=== PATIENT | female | born 1990 | race Caucasian/White ===

== ENCOUNTER 2016-11-06 17:00 | Observation (INO) | payer OTHER, MEDICAID ==
[~2016-11-06] VITALS: Ht 154.9 cm; Wt 56.2 kg
[2016-11-06] VITALS (7 sets, daily range): BP systolic 109–125; BP diastolic 65–83
--- OUTSIDE RECORDS SUMMARY | 2016-11-06 17:19 | XMS REPORT ---
Author Author FAMILIA POWELL [facility] eClinicalWorks Address Unknown Phone Unavailable Care Team Providers Care Professor Of Legal Studies Name Role Phone FAMILIA POWELL CP Unavailable Allergies, Adverse Reactions, Alerts Substance Reaction Event Type N.K.D.A. Info Not Available Non Drug Allergy Problems Problem Type Condition Code Onset Dates Condition Status Problem Contact dermatitis L25.9 Active Problem Anorexia 783.0 Active Problem Tobacco abuse Z72.0 Active Assessment Encounter for screening for infections with a predominantly sexual mode of transmission Z11.3 Active Problem Nondependent tobacco use disorder 305.1 Active Assessment Vaginal discharge N89.8 Active Medications Medication Code System Code Instructions Start Date End Date Status Dosage Chantix Continuing Month [facility] [id number] 1 MG Orally Twice a day 1 tablet Procedures Procedure Coding System Code Date No Charge CPT-4 91935 February 12, 2016 TRICHOMONAS ASSAY W/OPTIC CPT-4 59569 February 12, 2016 URINALYSIS, AUTO, W/O SCOPE CPT-4 03716 February 12, 2016 Office Visit, Est Pt., Level 3 CPT-4 78959 February 12, 2016 CULTURE, BACTERIA, OTHER CPT-4 20493 February 12, 2016 LOPEZ VAG, DNA, DIR PROBE CPT-4 00172 February 12, 2016 SPECIMEN HANDLING CPT-4 02385 February 12, 2016 VENIPUNCT, ROUTINE* CPT-4 12843 February 12, 2016 Vital Signs Date/Time: February 12, 2016 Temperature 97.7 F Weight 130.0 lbs Height 61 in BMI 24.56 Index Blood Pressure Diastolic 74 mmHg Blood Pressure Systolic 126 mmHg Cardiac Monitoring Heart Rate 90 bpm Results Name Result Date Reference Range Unit Abnormality Flag BACTERIAL VAGINOSIS (IN HOUSE) ----Lot # [id number] ----Exp date 20160212 ----RESULTS negative 20160212 ----Control + [id number] ROUTINE VENIPUNCTURE TRICHOMONAS (IN HOUSE) ----TRICHOMONAS negative 20160212 ----Control + [id number] ----Lot # [id number] ----Exp date 20160212 UA LONG DIP (IN HOUSE) ----JULEE negative 20160212 ----GLU negative 20160212 ----SG 1.025 20160212 ----KET negative 20160212 ----pH 6.5 20160212 ----Protein negative 20160212 ----BLO negative 20160212 ----DANIE negative 20160212 ----Color dark yellow 20160212 ----Lot # [id number] ----Odor strong 20160212 ----Exp date 20160212 ----URO 0.2 20160212 ----NIT negative 20160212 ----Clarity clear 20160212 ----Lot # [id number] ----Exp date 20160212 CULTURE, GENITAL ----Genital Culture, Routine Preliminary report [id number] Summary Purpose eClinicalWorks Submission
[2016-11-06] MEDS ORDERED: FAMOTIDINE 20 MG (PEPCID) TABLET PO PRN (17:45)
[2016-11-06] MEDS ORDERED: ENOXAPARIN 100 MG/1 ML (LOVENOX) SYR SC SCH ×2 (17:45→20:35)
--- NOTE | 2016-11-06 17:54 | Cardiology History & Physical ---
HPI-Cardiology Cardiology Consultation Date of Consultation 11/06/16 Date of Admission Indication: Chest pain HPI 25 years old lady with no significant past medical history, diagnosed with urinary tract infection late last week, started on antibiotics yesterday, was in her usual state of health at work this morning when she started having left shoulder and left arm pain, described it as achiness persisted for about half an hour then associated with chest pain described as dull achiness in the retrosternal area, felt lightheaded. Patient left work went home then she was brought by her boyfriend to the emergency room. In the ER she was feeling better. No further episode of chest pain, did not require any treatment, she was given GI cocktail, EKG did not show any acute abnormality, troponin level was elevated of 0.1 and increased later on to 0.17, the normal value in [facility] 0.01. I was called to assess her, accepted her as a transfer. Upper my evaluation she was feeling better, no further episodes of chest pain, had mild shortness of breath that has improved after her chest pain relief. Denied any palpitation, felt lightheaded but no syncope was reported, no pedal edema or calf pain. Patient used large amount of energy drink on a daily basis, drink alcohol and smoking, educated on smoking cessation, avoiding any caffeinated or energy drink. Avoiding stimulants. PMH-Cardiology Other PMHx Other PMHx: Urinary tract infection diagnosed 2 days ago Social History Patient Social History Marrital Status: single Employed/Student: employed Alcohol Use: Regular Use Smoking: Current every day smoker Family Hx Other No known family history of premature coronary artery disease or sudden cardiac ROS-Cardiology Review of Systems General: No Chills, No Night Sweats, Fatigue MalaiseNo Appetite HEENT: No Head Aches, No Visual Changes, No Eye Pain, No Ear Pain, No Dysphasia , No Sinus Congestion, No Post Nasal Drip, No Sore Throat Pulmonary: DyspneaNo Cough, No Pleuritic Chest Pain Cardiovascular: : Chest Pain: Lt HeadednessNo: Edema, Orthopnea, Palpitations, Paroxysmal Noc. Dyspnea Gastrointestinal: No: Abdominal Pain, Constipation, Diarrhea, Hematochezia, Melena, Nausea, Vomiting Genitourinary: No Dysuria, No Frequency, No Incontinence, No Hematuria, No Retention Musculoskeletal: No: arm pain, back pain, foot pain, hand pain, leg pain, neck pain, shoulder pain Neurological: No: Change in speech, Confusion, Incoordination, Numbness, Seizures, Weakness Home Medications & Allergies Allergies: Coded Allergies: No Known Drug Allergies (Unverified , 11/06/16) Home Medication List Reviewed: Yes Exam-Cardiology Vital Signs Vital Signs Date Time Temp Pulse Resp B/P Pulse Ox O2 Delivery O2 Flow Rate FiO2 11/07/16 17:10 64 18 99/67 99 11/07/16 14:45 Room Air 11/07/16 12:31 98.1 Exam General Appearance: Alert, Oriented X3, Cooperative, No Acute Distress HEENT: Atraumatic, PERRLA Respiratory: Clear to Auscultation, Normal Air Movement Cardiovascular: Regular Rate, Normal S1, Normal S2, No Murmurs Abdominal: Normal Bowel Sounds, Soft, No Tenderness, No Hepatosplenomegaly, No Masses Extremities: No Clubbing, No Cyanosis, No Edema, Normal Pulses, No Tenderness/ Swelling Skin: No Rashes, No Breakdown, No Significant Lesion Neuro: Normal Gait, Normal Speech, Strength at 5/5 X4 Ext, Normal Tone, Sensation Intact Psych/Mental Status: Mental Status NL, Mood NL Results Labs Labs Laboratory Tests 11/07/16 09:03: Activated Partial Thromboplast Time 30, INR Comment 0.9, Prothrombin Time 11.5L 11/07/16 09:25: Ur Tricyclic Antidepressants Screen NEGATIVE, Urine Amphetamines Screen NEGATIVE , Urine Barbiturates Screen NEGATIVE, Urine Benzodiazepines Screen NEGATIVE, Urine Cannabinoids Screen NEGATIVE, Urine Cocaine Screen NEGATIVE, Urine Methadone Screen NEGATIVE, Urine Methamphetamines Screen NEGATIVE, Urine Opiates Screen POSITIVEH, Urine Oxycodone Screen NEGATIVE, Urine Phencyclidine Screen NEGATIVE, Urine Propoxyphene Screen NEGATIVE Lab results from [facility] were reviewed A/P-Cardiology Admission Diagnosis Chest pain CAD Tobaccoism UTI Assessment/Plan Chest pain nonspecific etiology, resembling angina, patient is 25 years old with no acute EKG changes, chest pain has improved spontaneously. Mild lightheadedness, left arm pain also improved. Noted to have mild elevation in troponin level, I will reevaluate troponin level today and tomorrow morning. Monitor EKG. If continued to be asymptomatic I am planning to evaluate exercise stress test in the morning, evaluate echocardiogram. Physical examination is normal. I will start the patient on aspirin and Lovenox. Evaluate lipid profile and TSH Heavy use of energy drinks and alcohol in addition to heavy smoking. Educated on avoiding all these products. I will evaluate urine drug screen. Lightheadedness, improved. Continue to monitor Urinary tract infection, treated with Bactrim, I will restarted on monitor. MAXWELL ARREDONDO MD Nov 06, 2016 17:54
[2016-11-06] MEDS: TRIM/SULFAMETH 160/800 (SEPTRA DS) TAB PO SCH (18:52)
[2016-11-06] MEDS ORDERED: FAMOTIDINE 20MG/2ML IV (PEPCID) ONE (19:12)
[2016-11-06] MEDS ORDERED: NITROGLYCERIN SUBLINGUAL 0.4 MG TAB (NITROSTAT) SL ONE ×3 (19:12→21:43)
[2016-11-06] MEDS ORDERED: ACETAMINOPHEN 500 MG TAB (TYLENOL) ONE (19:31)
[2016-11-06] MEDS: amLODIPine 5 MG (NORVASC) TAB PO ONE (21:43)
[2016-11-06] MEDS ORDERED: amLODIPine 5 MG (NORVASC) TAB ONE (21:43)
[2016-11-06] MEDS ORDERED: morphine INJ 4 MG/ML 1 ML (VIAL/SYRINGE) ONE (21:56)
[2016-11-06] MEDS: morphine INJ 10 MG/ML 1ML (SYR OR VIAL) IVP ONE (21:57)
[2016-11-06] MEDS: ENOXAPARIN 60 MG/0.6 ML (LOVENOX) SYR SC SCH (22:17)
[2016-11-07] VITALS (7 sets, daily range): BP systolic 89–112; BP diastolic 63–78
[2016-11-07] MEDS ORDERED: ACETAMINOPHEN 500 MG TAB (TYLENOL) PO ONE (01:00)
[2016-11-07] MEDS ORDERED: NITROGLYCERIN SUBLINGUAL 0.4 MG TAB (NITROSTAT) SL ONE ×3 (01:00)
[2016-11-07] MEDS ORDERED: NITROGLYCERIN SUBLINGUAL 0.4 MG TAB (NITROSTAT) SL PRN (01:00)
[2016-11-07] MEDS: morphine INJ 10 MG/ML 1ML (SYR OR VIAL) IVP ONE (01:03)
[2016-11-07] MEDS: amLODIPine 5 MG (NORVASC) TAB PO ONE (01:04)
[2016-11-07 04:05] LABS: MEAN PLATELET VOLUME 9.8 FL (7.4-10.4); RED BLOOD COUNT 4.35 10^6/uL (4.35-5.85); RED CELL DISTRIBUTION WIDTH 12.7 % (10.0-14.5); WHITE BLOOD COUNT 5.2 10^3/uL (4.3-11.0)
[2016-11-07 04:48] LABS: ALANINE AMINOTRANSFERASE 25 U/L (0-55); ALBUMIN 3.2 G/DL (3.2-4.5); ANION GAP 9 MMOL/L (5-14); ASPARTATE AMINO TRANSFERASE 38 U/L (5-34); BILIRUBIN,TOTAL 0.2 MG/DL (0.1-1.0); BLOOD UREA NITROGEN 12 MG/DL (7-18); BUN/CREATININE RATIO 14; CALCIUM 8.5 MG/DL (8.5-10.1); CARBON DIOXIDE 24 MMOL/L (21-32); CHLORIDE 104 MMOL/L (98-107); CHOLESTEROL 123 MG/DL (< 200); CREATININE SERUM 0.83 MG/DL (0.60-1.30); DIRECT LDL 21 MG/DL (1-129); GFR ESTIMATED > 60; GLUCOSE 106 MG/DL (70-105); POTASSIUM 4.1 MMOL/L (3.6-5.0); SODIUM 137 MMOL/L (135-145); TOTAL PROTEIN 5.6 G/DL (6.4-8.2); TRIGLYCERIDES 57 MG/DL (<150); VLDL CHOLESTEROL 11 MG/DL (5-40)
[2016-11-07 05:11] LABS: TROPONIN I 2.14 NG/ML (<0.30)
[2016-11-07 05:13] LABS: THYROID STIMULATING HORMONE 1.95 UIU/ML (0.35-4.94)
[2016-11-07] MEDS: TRIM/SULFAMETH 160/800 (SEPTRA DS) TAB PO SCH (05:43)
[2016-11-07] MEDS ORDERED: FLU TRIvalent (5 YOA+) 2016-17 (AFLURIA) 0.5 ML IM ONE (07:15)
[2016-11-07] MEDS ORDERED: NS IV 1000 ML 1,000 ML IV SCH ×2 (08:15→11:12)
--- NOTE | 2016-11-07 08:31 | Cardiology Progress Note ---
Subjective Subjective/Events-last exam patient had multiple episodes of chest pain last night, responded to sublingual nitroglycerin and then required one dose of morphine sulfate. Currently not having chest pain, expressed that the pain in left arm pain that occurred during the hospital stay was similar to the pain happened at home, no acute EKG changes were noted Review of Systems General: No Chills, No Night Sweats, No Fatigue, No Malaise, No Appetite, No Other HEENT: No Head Aches, No Visual Changes, No Eye Pain, No Ear Pain, No Dysphasia , No Sinus Congestion, No Post Nasal Drip, No Sore Throat, No Other Pulmonary: No Dyspnea, No Cough, No Pleuritic Chest Pain, No Other Cardiovascular: No: Chest Pain, Edema, Lt Headedness, Orthopnea, Other, Palpitations, Paroxysmal Noc. Dyspnea Objective-Cardiology Exam Last Set of Vital Signs Vital Signs 11/07/16 11/07/16 08:14 08:16 Temp 96.2 Pulse 51 Resp 20 B/P 111/67 Pulse Ox 97 O2 Delivery Room Air Capillary Refill : I&O Bad tableGeneral: Alert, Oriented X3, Cooperative, No Acute Distress HEENT: Atraumatic, PERRLA Lungs: Clear to Auscultation, Normal Air Movement Heart: Regular Rate, Normal S1, Normal S2, No Murmurs Abdomen: Normal Bowel Sounds, Soft, No Tenderness, No Hepatosplenomegaly, No Masses Extremities: No Clubbing, No Cyanosis, No Edema, Normal Pulses, No Tenderness/ Swelling Skin: No Rashes, No Breakdown, No Significant Lesion Neuro: Normal Gait, Normal Speech, Strength at 5/5 X4 Ext, Normal Tone, Sensation Intact Psych/Mental Status: Mental Status NL, Mood NL Results Lab Laboratory Tests 11/07/16 03:50 A/P-Cardiology Admission Diagnosis Chest pain nonspecific etiology Anxiety Urinary tract infection Tobaccoism Assessment/Plan Chest pain nonspecific etiology, resembling angina, elevation in troponin level , continue to have recurrent chest pain, we discussed the management plan, discussed possibility of doing stress test versus cardiac catheterization, patient prefer cardiac catheterization, understand that having a stress test then continue to have chest pain and elevated troponin will require cardiac catheterization. Understands the risks and benefits. I will evaluate 2-D echocardiogram. Anxiety, patient was fairly anxious about her recurrent chest pain. Heavy use of energy drinks and alcohol in addition to heavy smoking. Educated on avoiding all these products. I will evaluate urine drug screen. Lightheadedness, improved. Continue to monitor Urinary tract infection, treated with Bactrim, I will restarted on monitor. Clinical Quality Measures DVT/VTE Risk/Contraindication: Risk Factor Score Per Nursin RFS Level Per Nursing on Admit: 1=Low/No VTE PPX MAXWELL ARREDONDO MD Nov 07, 2016 08:31
[2016-11-07] MEDS: ENOXAPARIN 60 MG/0.6 ML (LOVENOX) SYR SC SCH (08:37)
--- NOTE | 2016-11-07 08:46 | Cardiac Procedure Note-CS/ASA ---
Pre-Procedure Note Pre-Op Procedure Note H&P Reviewed The H&P was reviewed, patient examined and no changes noted. Date H&P Reviewed: Nov 07, 2016 Time H&P Reviewed: 08:46 Conscious Sedation Pre-Proced Time Reviewed: 08:46 ASA Class: 3 Airway Mallampati Classification: ([place] appropriate class) I. II. III, IV Lungs Heart ASA score ASA 1: a normal healthy patient ASA 2: a patient with a mild systemic disease (mid diabetes, controlled hypertension, obesity x ASA 3: a patient with a severe systemic disease that limits activity (angina , COPD, prior Myocardial infarction) ASA 4: a patient with an incapacitating disease that is a constant threat to life (CHF, renal failure) ASA 5: a moribund patient not expected to survive 24 hrs. (ruptured aneurysm) ASA 6: a declared brain patient whose organs are being harvested. For emergent operations, add the letter E after the classification Grade 3 Sedation Plan: Analgesia, Amnesia, Plan communicated to team members, Discussed options with patient/fam, Discussed risks with patient/fam Note The patient is an appropriate candidate to undergo the planned procedure, sedation, and anesthesia. The patient immediately re-assessed prior to indication. MAXWELL ARREDONDO MD Nov 07, 2016 08:46
[2016-11-07] MEDS ORDERED: ASPIRIN E.C. 325 MG (ECOTRIN) TABLET PO SCH (09:00)
[2016-11-07] MEDS ORDERED: CATHETER FLUSH 10 ML SYR IV PRN (09:00)
[2016-11-07] MEDS ORDERED: NAPR220T66 PO (09:13)
[2016-11-07] MEDS ORDERED: SULF-222 PO (09:13)
--- NOTE | 2016-11-07 09:21 | Diagnostic Imaging Report ---
INDICATION: Chest pain. TECHNIQUE: A frontal chest was obtained at 0524 hours. FINDINGS: The heart and mediastinal silhouette are normal in appearance. The lungs are clear. There is no pneumothorax or pleural fluid. IMPRESSION: Negative chest. Dictated by: Dictated on workstation # [id number]
[2016-11-07 09:23] LABS: INR 0.9 (0.8-1.4); PROTHROMBIN TIME PATIENT 11.5 SEC (12.2-14.7)
[2016-11-07] MEDS ORDERED: fentaNYL INJECTION 100 MCG/2 ML AMP ONE (10:12)
[2016-11-07] MEDS ORDERED: MIDAZOLAM 5 MG/5 ML (VERSED) VIAL ONE (10:12)
[2016-11-07] MEDS ORDERED: HEParin (CATH LAB) 2,000 ML IV ONE (10:12)
[2016-11-07] MEDS ORDERED: LIDOCAINE 1% INJ 20 ML (XYLOCAINE) VIAL ONE (10:12)
[2016-11-07] MEDS ORDERED: NS IV 1000 ML 0 ML ONE (10:12)
[2016-11-07] MEDS ORDERED: FAMO20TA5 PO (11:14)
[2016-11-07] MEDS ORDERED: ASPI-983 PO (11:14)
[2016-11-07] MEDS ORDERED: AMLO2.5T PO (11:14)
[2016-11-07] MEDS ORDERED: PATIENT MAY USE OWN MEDS, ALL PO SCH (11:15)
--- NOTE | 2016-11-07 11:16 | Discharge Inst-Post CATH ---
Discharge Inst-CATH Post Cardiac Cath D/C Inst Follow Up/Plan Appointment with Dr Mckeon's office in 2-4 weeks CARDIAC CATH DISCHARGE INSTRUCTIONS *Hold Metformin for 48 hours post heart cath. ACTIVITY * Go Home directly and rest. * Limit activity of the leg (or wrist if it was used) for 7 days including aerobics, swimming, jogging, bicycling, etc. * Restrict stair-climbing for 7 days if possible, if not, climb up with your non -cath leg, then bring together on the same step. * Avoid lifting, pushing, pulling or excessive movement of the affected extremity for 7 days. * Customary sexual activity may be resumed after 2 days-use caution not to use a position that strains or causes pain to the affected extremity. * No driving for 24 hours. * NO SMOKING. * Avoid straining for bowel movements for 7 days. * Gentle walking on level ground is allowed. * Returning to work will depend on the type of procedure and the results. Your doctor will discuss this with you. CALL YOUR DOCTOR FOR ANY OF THE FOLLOWING: *If bleeding from the puncture site occurs- Apply gentle pressure to site with clean cloth and call your doctor or EMS. * If a knot or lump forms under the skin, increases in size, or causes pain. * If bruising appears to be worsening or moving further down your leg instead of disappearing. * Temperature above 101 F. CARE OF YOUR GROIN INCISION; * Bruising or purple discoloration of the skin near the puncture site is common. * You may shower only, no bathtub bathing for 5 days. Be careful to avoid slipping as your leg may feel stiff. * If a closure device was used on your femoral artery, please see the attached guide regarding care of the device and your leg. * REMOVE the dressing from your groin the next day after your procedure in the shower. CARE OF YOUR WRIST INCISION; * Bruising or purple discoloration of the skin near the puncture site is common. * You may shower. * DO NOT submerge wrist. * Remove dressing in 24 hours. MAXWELL MCKEON MD Nov 07, 2016 11:16
--- NOTE | 2016-11-07 12:05 | ECHOCARDIOGRAPHY REPORT ---
PROCEDURE PHYSICIAN: MAXWELL ARNULFO DATE OF PROCEDURE: 11/07/2015 TWO DIMENSIONAL ECHOCARDIOGRAM REPORT PRIMARY PHYSICIAN: OTHER PHYSICIAN: REFERRING PHYSICIAN: ORDERING PHYSICIAN: INDICATION FOR THE PROCEDURE: Chest pain MEASUREMENTS DERIVED VALUES LV DIAMETER (LAX) NORMALS NORMALS Diastolic 4. (3.6-5.2) Eject. Fract. 60% (60%+/-6%) Systolic (2.3-3.9) Diastolic Vol. % Shortening (0.22-0.42) Systolic Vol. Aortic Root IVS THICKNESS Diastolic 1. (0.6-1.1) LVPW THICKNESS Diastolic 1. (0.6-1.1) LA DIAMETER Systolic 3.2 (2.1-3.7) FINDINGS: 1. Technical quality is good. 2. The left ventricle is normal in size with normal contractility. Systolic function appeared to be normal. Estimated ejection fraction 60%. 3. The left atrium is normal in size. No clot or thrombus were seen within the left atrium. 4. The right atrium and right ventricle are normal in size. No clot or thrombus were seen within the right side. 5. Mitral valve is normal in morphology with mild mitral regurgitation noted by color Doppler flow. No mitral valve prolapse. No mitral valve stenosis. 6. Aortic valve is trileaflet with normal opening and closing pattern. No significant aortic stenosis or regurgitation was seen. 7. Tricuspid valve is normal in morphology with mild tricuspid regurgitation noted by color Doppler flow. Doppler across tricuspid valve estimated pulmonary artery pressure of 10+ right atrial pressure. 8. Pulmonic valve is functioning normally. 9. No pericardial effusion. CONCLUSION: 1. Normal left ventricular size and systolic function. Estimated ejection fraction 60%. 2. Mild mitral and tricuspid regurgitation. 3. Estimated pulmonary artery pressure of 15 to 20 mmHg. 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
--- NOTE | 2016-11-07 12:21 | DISCHARGE SUMMARY ---
PROCEDURE PHYSICIAN: MAXWELL ARREDONDO DATE OF PROCEDURE: 11/07/2016 BRIEF HISTORY: Mrs. Macias is a 25-year-old lady was seen in [place] emergency room with acute chest pain, had positive troponin and transferred over here. She continued to have recurrent episodes of chest pain overnight. She had increase in her troponin level, no acute EKG changes. After discussing treatment options with the patient she requested cardiac catheterization. The procedure was explained in length, all pros and cons were explained. All questions were answered. The patient signed a consent, then she was placed on the cardiac catheterization laboratory. The right groin was prepped in a sterile fashion. Local anesthesia applied to right groin. 6-Faroese sheath was placed in the right femoral artery. Combination of right and left [place] catheter were used to access the right and left coronary system. Multiple views were obtained. Pigtail catheter advanced to the left ventricular cavity. Pressure was measured. Left ventriculogram was done. Pullback LV to aorta was done. At the end of the procedure, thoracic aortogram/aortic root angiogram was done. At the end of the procedure, sheath was removed. Mynx device deployed. Hemostasis achieved. FINDINGS: HEMODYNAMICS: LV pressure 99/13, end-diastolic pressure of 13, aortic pressure 100/57, mean of 75. No significant gradient across the aortic valve. ANATOMY: 1. Left main coronary artery is bifurcating to left anterior descending and left circumflex artery with no obstructive disease. 2. Left anterior descending artery is moderate in size with no obstructive disease. 3. Left circumflex artery is small, nondominant artery with no significant obstructive disease. 4. Right coronary artery is moderate in size. Dominant artery, with no obstructive disease. 5. Left ventriculogram was done in the right anterior oblique position. The left ventricle is normal in size with normal systolic function. Estimated ejection fraction 60%. 6. Thoracic aortogram/aortic root angiogram: Thoracic aorta and aortic root and aortic arch are normal in size. No dissection or aneurysm was seen. CONCLUSION: 1. Normal coronary system with a small, nondominant circumflex artery. 2. Normal left ventricular end diastolic pressure with normal left ventricular systolic function. Estimated ejection fraction 60%. 3. Normal aortic arch and thoracic aorta. DISCUSSION AND RECOMMENDATION: Mrs. Macias had chest pain and elevated troponin probably due to coronary spasm. Her troponin elevation also is probably due to coronary spasm, anxiety. I will start her on low-dose Norvasc with 2.5 mg daily, aspirin and Pepcid. I will reevaluate her as an outpatient. FINAL DIAGNOSIS: 1. Chest pain, nonspecific etiology. 2. Shortness of breath. 3. Elevated troponin. No myocardial infarction was noted. 4. Tobaccoism. 5. Alcoholism. 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
== END 2016-11-07 17:15 | disposition home or self-care (01) ==
LOC: ICU 17:00
PROVIDERS: ADMIT Internal Medicine Cardiovascular Disease; ATTEND Internal Medicine Cardiovascular Disease
DX: R07.89 Other chest pain (principal); R06.02 Shortness of breath; R79.89 Other specified abnormal findings of blood chemistry; N39.0 Urinary tract infection, site not specified; Z72.0 Tobacco use; Z79.899 Other long term (current) drug therapy
CPT/HCPCS: 36415; 71010; 80053; 80061; 80306; 83880; 84443; 84484; 85027; 85610; 85730; 93005; 93306; 93458; 93567; 99211; G0378

== ENCOUNTER 2019-03-15 10:33 | Emergency (ER) | payer MEDICAID, OTHER ==
[~2019-03-15] VITALS: Ht 154.9 cm; Wt 70.3 kg
[~2019-03-15 10:33] MED LIST: AMLO2.5T4 PO; ASPI-983 PO; FAMO20TA5 PO; NAPR220T66 PO; SULF-222 PO
[2019-03-15 10:45] VITALS: BP 135/91
[2019-03-15 11:01] LABS: CLARITY,URINE CLEAR; COLOR,URINE DARK YELLOW; GLUCOSE, URINE (UA) NEGATIVE (NEGATIVE); KETONES,URINE 3+ (NEGATIVE); NITRITE,URINE NEGATIVE (NEGATIVE); PROTEIN,URINE TRACE (NEGATIVE)
[2019-03-15 11:02] LABS: BACTERIA,URINE TRACE /HPF; LEUKOCYTE ESTERASE ,URINE TRACE (NEGATIVE); RBC,URINE RARE /HPF; UROBILINOGEN,URINE 0.2 MG/DL (NORMAL); WBC,URINE 0-2 /HPF
[2019-03-15 11:03] LABS: HCG,QUALITATIVE URINE NEGATIVE (NEGATIVE)
[2019-03-15 11:07] LABS: BILIRUBIN,URINE 2+ (NEGATIVE)
--- OUTSIDE RECORDS SUMMARY | 2019-03-15 11:13 | XMS REPORT ---
Author Author Migration, Doctor Organization [facility] Address Unknown Phone Unavailable Care Team Providers Care Roll Plugger Machine Operator Name Role Phone Migration, Doctor Unavailable Unavailable PROBLEMS Type Condition ICD9-CM Code EQT56-WH Code Onset Dates Condition Status SNOMED Code Problem Contact dermatitis L25.9 Active 74964933 Problem Tobacco abuse Z72.0 Active 34974081 Problem Anorexia 783.0 Active 03634652 Problem Nondependent tobacco use disorder 305.1 Active 326638213 ALLERGIES No Information ENCOUNTERS Encounter Location Date Diagnosis [facility] [address] [place] [address] Dec, Drug screening, pre-employment Z02.[address] [address] 20 Nov, 2018 Acute UTI N39.0 [facility] [address] [place] [address] 19 Nov, 2018 [facility] IN [address] [address] 14 Nov, 2018 Flank pain R10.9 and Dysuria R30.0 [facility] [address] [place] [address] Jun, [facility] [id number] [place] [address] February, Atyp squam cell of undet signfc cyto smr crvx (ASC-US) R87.610 and Cervical high risk human papillomavirus (HPV) DNA test positive R87.810 [facility] [address] [place] [address] February, [facility] [address] [place] [address] 15 Jan, 2016 Vaginal discharge N89.8 and Encounter for screening for infections with a predominantly sexual mode of transmission Z11.3 [facility] [address] [place] [address] Aug, [facility] [id number] [place] [address] Aug, Contact dermatitis L25.9 and Poison bharathi L23.7 [facility] [id number] [place] [address] Jul, [facility] [id number] [place] [address] Jun, Encounter for IUD removal V25.12 and Contraception management V25.9 [facility] [id number] [place] [id number] Jun, Dental examination V72.2 [facility] [id number] [place] [address] Mar, [facility] [id number] [place] [address] Jan, [facility] [id number] [place] [address] Jan, [facility] [id number] [place] [address] Mar, [facility] [address] [place] [address] Mar, [facility] [id number] [place] [address] Nov, [facility] [id number] [place] [address] Nov, [facility] [id number] [place] [address] Nov, [facility] [id number] [place] [address] Nov, [facility] [address] [id number] [address] Nov, [facility] [place] [facility] [address] [id number] [place] [address] Nov, [facility] [place] [facility] [address] [id number] [place] [address] Oct, [facility] [place] [facility] [address] [id number] [place] [address] Oct, [facility] [place] [facility] [address] [id number] [place] [address] Oct, [facility] [place] [facility] [address] [id number] [place] [address] Oct, [facility] [place] [facility] [address] [id number] [place] [address] May, [facility] [place] [facility] [address] [id number] [place] [address] May, [facility] [place] [facility] [address] [id number] [place] [address] May, [facility] [place] [facility] [address] [id number] [place] [address] Apr, [facility] [place] [facility] [address] [id number] [place] [address] Mar, [facility] [place] [facility] [address] [id number] [place] [address] Mar, [facility] [place] [facility] [address] [id number] [place] [address] Mar, [facility] [place] [facility] [address] [id number] [place] [address] Mar, [facility] [place] [facility] [address] [id number] [place] [address] February, [facility] [place] [facility] [address] [id number] [place] [address] February, [facility] [address] [facility] [id number], [place] [address] February, [facility] [address] [id number], [place] [address] Mar, [facility] [address] [id number], [place] [address] Mar, [facility] [address] [id number] [address] Mar, [facility] [address] [id number], [place] [address] Mar, [facility] [address] [id number], [place] [address] Mar, IMMUNIZATIONS No Known Immunizations SOCIAL HISTORY Never Assessed REASON FOR VISIT EMR-[facility] PLAN OF CARE VITAL SIGNS MEDICATIONS Medication Instructions Dosage Frequency Start Date End Date Duration Status Doxycycline Hyclate 100 mg take 1 tablet (100 mg) by oral route 2 times per day for 7 days Mar, Active Mirena by Intrauterine route Mar, Active Flagyl 500 mg 1 tablet by Oral route 2 times per day for 7 days Take with food, avoid alcohol. Nov, Active Metronidazole 500 mg 1 tablet by Oral route 2 times per day for 14 days do not consume alcohol for 48 hours after regimen Apr, Active RESULTS No Results PROCEDURES No Known procedures INSTRUCTIONS MEDICATIONS ADMINISTERED No Known Medications MEDICAL (GENERAL) HISTORY Type Description Date Medical History heart cath Medical History 3 vaginal births Surgical History heart cath Hospitalization History 3 vaginal births Hospitalization History heart cath
--- OUTSIDE RECORDS SUMMARY | 2019-03-15 11:13 | XMS REPORT ---
Author Author Migration, Doctor Organization [facility] Address Unknown Phone Unavailable Care Team Providers Care Programming Intern Name Role Phone Migration, Doctor Unavailable Unavailable PROBLEMS Type Condition ICD9-CM Code FIM30-XA Code Onset Dates Condition Status SNOMED Code Problem IUD check up V25.42 Jul, 0 103182442 Problem Pelvic pain in female 625.9 Jul, 0 909956158 Problem Chest pain 786.50 Oct, 0 63074448 Problem Anorexia 783.0 Active 37810522 Problem Routine follow-up V24.2 Aug, 0 394784806 Problem Cigarette nicotine dependence, uncomplicated 305.1 Nov, 0 656759302 Problem Elevated troponin R74.8 Oct, 0 607742659 Problem Cigarette nicotine dependence, uncomplicated F17.210 Nov, 0 908555079 Problem Contact dermatitis L25.9 Active 52744696 Problem Elevated troponin 790.6 Oct, 0 958206841 Problem Tobacco abuse Z72.0 Active 92642811 Problem Nondependent tobacco use disorder 305.1 Active 667304764 Problem Routine follow-up Z39.2 Aug, 0 253484181 Problem Pelvic pain in female R10.2 Jul, 0 067401500 Problem Chest pain R07.9 Oct, 0 50346418 Problem IUD check up Z30.431 Jul, 0 488127991 ALLERGIES No Information ENCOUNTERS Encounter Location Date Diagnosis [facility] [address] [place] [address] Dec, Drug screening, pre-employment Z02.[address] [address] Nov, Acute UTI N39.0 [facility] [address] [place] [address] Nov, [facility] [address] [place] [address] 14 Nov, 2018 Flank pain R10.9 and Dysuria R30.0 [place] [address] [address] Oct, [facility] [address] [address] Sep, [place] [address] [address] Jul, [place] [address] [address] Jun, [place] [address] [address] February, Atyp squam cell of undet signfc cyto smr crvx (ASC-US) R87.610 and Cervical high risk human papillomavirus (HPV) DNA test positive R87.810 [place] [address] [address] February, [facility] [address] [address] Jan, Vaginal discharge N89.8 and Encounter for screening for infections with a predominantly sexual mode of transmission Z11.3 [place] [address] [address] Aug, [place] [address] [address] Aug, Contact dermatitis L25.9 and Poison bharathi L23.7 [place] [address] [address] Jul, [address] [address] Jun, Encounter for IUD removal V25.12 and Contraception management V25.9 [facility] [address] [id number] Jun, Dental examination V72.2 [facility] [place] [facility] [address] [id number] [place] [address] Mar, [facility] [place] [facility] [address] [id number] [place] [address] Jan, [facility] [place] [facility] [address] [id number] [place] [address] Jan, [facility] [place] [facility] [address] [id number] [place] [address] Mar, [facility] [place] [facility] [address] [id number] [place] [address] Mar, [facility] [place] [facility] [address] [id number] [place] [address] Nov, [facility] [place] [facility] [address] [id number] [place] [address] Nov, [facility] [place] [facility] [address] [id number] [place] [address] Nov, [facility] [place] [facility] [address] [id number] [place] [address] Nov, [facility] [place] [facility] [address] [id number] [place] [address] Nov, [facility] [place] [facility] [address] [id number] [place] [address] Nov, [facility] [place] [facility] [address] [id number] [place] [address] Oct, [facility] [place] [facility] [address] [id number] [place] [address] Oct, [facility] [place] [facility] [address] [id number] [place] [address] Oct, [facility] [place] [facility] [address] [id number] [place] [address] Oct, [facility] [place] [facility] [address] [id number] [place] [address] May, [facility] [address] [id number] [place] [address] May, [facility] [address] [id number] [place] [address] May, [facility] [address] [id number] [place] [address] Apr, [facility] [address] [id number] [place] [address] Mar, [facility] [address] [id number] [place] [address] Mar, [facility] [address] [id number] [place] [address] Mar, [facility] [address] [id number] [place] [address] Mar, [facility] [address] [id number] [place] [address] February, [facility] [address] [id number] [place] [address] February, [facility] [address] [id number] [place] [address] February, [facility] [address] [id number] [place] [address] Mar, [facility] [address] [id number] [place] [address] Mar, [facility] [address] [id number] [place] [address] Mar, [facility] [address] [id number] [place] [address] Mar, [facility] [address] [id number] [place] [address] Mar, IMMUNIZATIONS No Known Immunizations SOCIAL HISTORY Never Assessed REASON FOR VISIT [place] [place] VITAL SIGNS MEDICATIONS Unknown Medications RESULTS No Results PROCEDURES No Known procedures INSTRUCTIONS MEDICATIONS ADMINISTERED No Known Medications MEDICAL (GENERAL) HISTORY Type Description Date Medical History heart cath Medical History 3 vaginal births Surgical History heart cath Hospitalization History 3 vaginal births Hospitalization History heart cath
--- OUTSIDE RECORDS SUMMARY | 2019-03-15 11:14 | XMS REPORT ---
Author Author Migration, Doctor Organization [facility] Address Unknown Phone Unavailable Care Team Providers Care Engraving Plate Maker Name Role Phone Migration, Doctor Unavailable Unavailable PROBLEMS Type Condition ICD9-CM Code AKF56-JT Code Onset Dates Condition Status SNOMED Code Problem Contact dermatitis L25.9 Active 97222602 Problem Tobacco abuse Z72.0 Active 98292021 Problem Anorexia 783.0 Active 26147569 Problem Nondependent tobacco use disorder 305.1 Active 843197474 ALLERGIES No Information ENCOUNTERS Encounter Location Date Diagnosis [facility] [address] [place] [address] Dec, Drug screening, pre-employment Z02.[address] [address] 20 Nov, 2018 Acute UTI N39.0 [facility] [address] [place] [address] 19 Nov, 2018 [facility] [address] [address] 14 Nov, 2018 Flank pain R10.9 and Dysuria R30.0 [facility] [address] [place] [address] Jun, [facility] [id number] [place] [address] February, Atyp squam cell of undet signfc cyto smr crvx (ASC-US) R87.610 and Cervical high risk human papillomavirus (HPV) DNA test positive R87.810 [facility] [address] [place] [address] February, [facility] IN [facility] [address] [place] [address] 15 Jan, 2016 Vaginal discharge N89.8 and Encounter for screening for infections with a predominantly sexual mode of transmission Z11.3 [facility] [address] [place] [address] Aug, [facility] [id number] [place] [address] Aug, Contact dermatitis L25.9 and Poison bharathi L23.7 [facility] [id number] [place] [address] Jul, [facility] [id number] [place] [address] Jun, Encounter for IUD removal V25.12 and Contraception management V25.9 [facility] [id number] [place] [id number] Jun, Dental examination V72.2 [facility] [id number] [place] [address] Mar, [facility] [id number] [place] [address] Jan, [facility] [id number] [place] [address] Jan, [facility] [id number] [place] [address] Mar, [facility] [address] [place] [address] Mar, [facility] [id number] [place] [address] Nov, [facility] [address] [place] [address] Nov, [facility] [id number] [place] [address] Nov, [facility] [id number] [place] [address] Nov, [facility] [address] [id number] [place] [address] Nov, [facility] [place] [facility] [address] [id number] [place] [address] Nov, [facility] [place] [facility] [address] [id number] [place] [address] Oct, [facility] [place] [facility] [address] [id number] [place] [address] Oct, [facility] [place] [facility] [address] [id number] [place] [address] Oct, [facility] [place] [facility] [address] [id number] [place] [address] Oct, [facility] [place] [facility] [address] [id number] [place] [address] May, [facility] [place] [facility] [address] [id number] [place] [address] May, [facility] [place] [facility] [address] [id number] [place] [address] May, [facility] [place] [facility] [address] [id number] [place] [address] Apr, [facility] [place] [facility] [address] [id number] [place] [address] Mar, [facility] [place] [facility] [address] [id number] [place] [address] Mar, [facility] [place] [facility] [address] [id number] [place] [address] Mar, [facility] [place] [facility] [address] [id number] [place] [address] Mar, [facility] [place] [facility] [address] [id number] [place] [address] February, [facility] [place] [facility] [address] [id number] [place] [address] February, [facility] [address] [facility] [id number] [address] February, [facility] [address] [address] Mar, [facility] [address] [id number] [address] Mar, [facility] [address] [address] Mar, [facility] [address] [id number] [address] Mar, [facility] [address] [id number] [address] Mar, IMMUNIZATIONS No Known Immunizations SOCIAL HISTORY Never Assessed REASON FOR VISIT [place] [place] VITAL SIGNS MEDICATIONS Unknown Medications RESULTS No Results PROCEDURES No Known procedures INSTRUCTIONS MEDICATIONS ADMINISTERED No Known Medications MEDICAL (GENERAL) HISTORY Type Description Date Medical History heart cath Medical History 3 vaginal births Surgical History heart cath Hospitalization History 3 vaginal births Hospitalization History heart cath
--- OUTSIDE RECORDS SUMMARY | 2019-03-15 11:14 | XMS REPORT ---
Author Author ROSENDO MASCORRO Organization [employer] Address Unknown Phone Unavailable Care Team Providers Care Tile Layer Helper Name Role Phone ROSENDO MASCORRO CP Unavailable Allergies No Known Allergies Problems Problem Type Condition ICD-9 Code Onset Dates Condition Status Problem Nondependent tobacco use disorder 305.1 Active Assessment Dental examination V72.2 Active Problem Anorexia 783.0 Active Medications No Known Medications Procedures Procedure Coding System Code Date INTRAORL-PERIAPICAL 1 FILM 03935 CPT-4 D0220 Jul 02, 2015 BITEWING - SINGLE FILM CPT-4 D0270 Jul 02, 2015 LTD ORAL EVALUATION - PROBLEM FOCUS CPT-4 D0140 Jul 02, 2015 Results No Known Results Summary Purpose [employer] Submission
--- OUTSIDE RECORDS SUMMARY | 2019-03-15 11:14 | XMS REPORT ---
Author Author SILVANA HAN Organization [employer] Address Unknown Phone Unavailable Care Team Providers Care Aircraft De Icer Installer Name Role Phone SILVANA HAN CP Unavailable Allergies, Adverse Reactions, Alerts Substance Reaction Event Type N.K.D.A. Info Not Available Non Drug Allergy Problems Problem Type Condition Code Onset Dates Condition Status Problem Contact dermatitis L25.9 Active Problem Anorexia 783.0 Active Problem Tobacco abuse Z72.0 Active Assessment Poison bharathi L23.7 Active Problem Nondependent tobacco use disorder 305.1 Active Assessment Contact dermatitis L25.9 Active Medications Medication Code System Code Instructions Start Date End Date Status Dosage Ortho-Cyclen (28) [facility] [address]-28 0.25-35 MG-MCG Orally Once a day Jul 02, 2015 1 tablet PredniSONE [facility] [address]-42 10 MG Orally Once a day, 3 tabs for 3 days: Then 2 tabs for 3 days: then 1 tab for 3 days Sep 08, 2015 as directed Procedures Procedure Coding System Code Date Office Visit, Est Pt., Level 3 CPT-4 95349 Sep 08, 2015 Vital Signs Date/Time: Sep 08, 2015 Temperature 98.0 F Weight 124.6 lbs Height 61 in BMI 23.54 Index Blood Pressure Diastolic 72 mmHg Blood Pressure Systolic 118 mmHg Cardiac Monitoring Heart Rate 72 bpm Results No Known Results Summary Purpose [employer] Submission
--- OUTSIDE RECORDS SUMMARY | 2019-03-15 11:14 | XMS REPORT ---
Author Author Migration, Doctor Organization [facility] Address Unknown Phone Unavailable Care Team Providers Care Civil Engineer In Training Name Role Phone Migration, Doctor Unavailable Unavailable PROBLEMS Type Condition ICD9-CM Code ABX34-[id number] Code Onset Dates Condition Status SNOMED Code Problem Contact dermatitis L25.9 Active 01565514 Problem Tobacco abuse Z72.0 Active 42896645 Problem Anorexia 783.0 Active 46414483 Problem Nondependent tobacco use disorder 305.1 Active 253290472 ALLERGIES No Information ENCOUNTERS Encounter Location Date Diagnosis [facility] WALK IN [facility] [address] [place] [address] Dec, Drug screening, pre-employment Z02.[address] [address] 20 Nov, 2018 Acute UTI N39.0 [facility] IN [facility] [address] [place] [address] 19 Nov, 2018 [facility] IN [address] [address] 14 Nov, 2018 Flank pain R10.9 and Dysuria R30.0 [facility] [address] [place] [address] Jun, [facility] [id number] [place] [address] February, Atyp squam cell of undet signfc cyto smr crvx (ASC-US) R87.610 and Cervical high risk human papillomavirus (HPV) DNA test positive R87.810 [facility] [address] [place] [address] February, [facility] [address] [place] [address] 15 Jan, 2016 Vaginal discharge N89.8 and Encounter for screening for infections with a predominantly sexual mode of transmission Z11.3 [facility] [address] [place] [address] Aug, [facility] [id number] [place] [address] Aug, Contact dermatitis L25.9 and Poison bharathi L23.7 [facility] [id number] [place] [address] Jul, [facility] [id number] [place] [address] Jun, Encounter for IUD removal V25.12 and Contraception management V25.9 [facility] [id number] [place] [id number] Jun, Dental examination V72.2 [facility] [id number] [place] [address] Mar, [facility] [id number] [place] [address] Jan, [facility] [id number] [place] [address] Jan, [facility] [id number] [place] [address] Mar, [facility] [address] [place] [address] Mar, [facility] [id number] [place] [address] Nov, [facility] [address] [place] [address] Nov, [facility] [id number] [place] [address] Nov, [facility] [id number] [place] [address] Nov, [facility] [address] [id number] [address] Nov, [facility] [place] [facility] [address] [id number] [place] [address] Nov, [facility] [place] [facility] [address] [id number] [place] [address] Oct, [facility] [place] [facility] [address] [id number] [place] [address] Oct, [facility] [place] [facility] [address] [id number] [place] [address] Oct, [facility] [place] [facility] [address] [id number] [place] [address] Oct, [facility] [place] [facility] [address] [id number] [place] [address] May, [facility] [place] [facility] [address] [id number] [place] [address] May, [facility] [place] [facility] [address] [id number] [place] [address] May, [facility] [place] [facility] [address] [id number] [place] [address] Apr, [facility] [place] [facility] [address] [id number] [place] [address] Mar, [facility] [place] [facility] [address] [id number] [place] [address] Mar, [facility] [place] [facility] [address] [id number] [place] [address] Mar, [facility] [place] [facility] [address] [id number] [place] [address] Mar, [facility] [place] [facility] [address] [id number] [place] [address] February, [facility] [place] [facility] [address] [id number] [place] [address] February, [facility] [address] [facility] [id number] [place] [address] February, [facility] [address] [address] Mar, [facility] [address] [id number] [address] Mar, [facility] [address] [address] Mar, [facility] [address] [id number] [address] Mar, [facility] [address] [id number] [address] Mar, IMMUNIZATIONS No Known Immunizations SOCIAL HISTORY [...]
--- OUTSIDE RECORDS SUMMARY | 2019-03-15 11:14 | XMS REPORT ---
Author Author Migration, Doctor Organization [facility] Address Unknown Phone Unavailable Care Team Providers Care Medical Billing Instructor Name Role Phone Migration, Doctor Unavailable Unavailable PROBLEMS Type Condition ICD9-CM Code GQS36-JP Code Onset Dates Condition Status SNOMED Code Problem Contact dermatitis L25.9 Active 79784811 Problem Tobacco abuse Z72.0 Active 20523268 Problem Anorexia 783.0 Active 72745880 Problem Nondependent tobacco use disorder 305.1 Active 434509998 ALLERGIES No Information ENCOUNTERS Encounter Location Date Diagnosis [facility] WALK IN [facility] [address] [place] [address] Dec, Drug screening, pre-employment Z02.[address] [address] 20 Nov, 2018 Acute UTI N39.0 [facility] [address] [place] [address] 19 Nov, 2018 [facility] [address] [address] 14 Nov, 2018 Flank pain R10.9 and Dysuria R30.0 [facility] [address] [place] [address] Jun, [facility] [id number] [place] [address] February, Atyp squam cell of undet signfc cyto smr crvx (ASC-US) R87.610 and Cervical high risk human papillomavirus (HPV) DNA test positive R87.810 [facility] [address] [place] [address] February, [facility] IN [facility] [address] [place] [address] 15 Jan, 2016 Vaginal discharge N89.8 and Encounter for screening for infections with a predominantly sexual mode of transmission Z11.3 [facility] [address] [place] [address] Aug, [facility] [id number] [place] [address] Aug, Contact dermatitis L25.9 and Poison bharathi L23.7 [facility] [id number] [place] [address] Jul, [facility] [id number] [place] [address] Jun, Encounter for IUD removal V25.12 and Contraception management V25.9 [facility] [id number] [place] [id number] Jun, Dental examination V72.2 [facility] [id number] [place] [address] Mar, [facility] [id number] [place] [address] Jan, [facility] [id number] [place] [address] Jan, [facility] [id number] [place] [address] Mar, [facility] [address] [place] [address] Mar, [facility] [id number] [place] [address] Nov, [facility] [address] [place] [address] Nov, [facility] [id number] [place] [address] Nov, [facility] [id number] [place] [address] Nov, [facility] [address] [id number] [address] Nov, [facility] [place] [facility] [address] [id number] [place] [address] Nov, [facility] [place] [facility] [address] [id number] [place] [address] Oct, [facility] [place] [facility] [address] [id number] [place] [address] Oct, [facility] [place] [facility] [address] [id number] [place] [address] Oct, [facility] [place] [facility] [address] [id number] [place] [address] Oct, [facility] [place] [facility] [address] [id number] [place] [address] May, [facility] [place] [facility] [address] [id number] [place] [address] May, [facility] [place] [facility] [address] [id number] [place] [address] May, [facility] [place] [facility] [address] [id number] [place] [address] Apr, [facility] [place] [facility] [address] [id number] [place] [address] Mar, [facility] [place] [facility] [address] [id number] [place] [address] Mar, [facility] [place] [facility] [address] [id number] [place] [address] Mar, [facility] [place] [facility] [address] [id number] [place] [address] Mar, [facility] [place] [facility] [address] [id number] [place] [address] February, [facility] [place] [facility] [address] [id number] [place] [address] February, [facility] [address] [facility] [id number] [address] February, [facility] [address], [place] [address] Mar, [facility] [address] [id number] [address] Mar, [facility] [address], [place] [address] Mar, [facility] [address] [id number] [address] Mar, [facility] [address] [id number], [place] [address] Mar, IMMUNIZATIONS No Known Immunizations SOCIAL HISTORY Never Assessed REASON FOR VISIT [facility] [place]AN OF CARE VITAL SIGNS MEDICATIONS Unknown Medications RESULTS No Results PROCEDURES No Known procedures INSTRUCTIONS MEDICATIONS ADMINISTERED No Known Medications MEDICAL (GENERAL) HISTORY Type Description Date Medical History heart cath Medical History 3 vaginal births Surgical History heart cath Hospitalization History 3 vaginal births Hospitalization History heart cath
--- OUTSIDE RECORDS SUMMARY | 2019-03-15 11:14 | XMS REPORT ---
Author Author Migration, Doctor Organization [facility] Address Unknown Phone Unavailable Care Team Providers Care Restaurant Hourly Manager Name Role Phone Migration, Doctor Unavailable Unavailable PROBLEMS Type Condition ICD9-CM Code CWY05-FL Code Onset Dates Condition Status SNOMED Code Problem Contact dermatitis L25.9 Active 93545217 Problem Tobacco abuse Z72.0 Active 55405733 Problem Anorexia 783.0 Active 73181330 Problem Nondependent tobacco use disorder 305.1 Active 297933287 ALLERGIES No Information ENCOUNTERS Encounter Location Date Diagnosis [facility] WALK IN [facility] [address] [place] [address] Dec, Drug screening, pre-employment Z02.[address] [address] 20 Nov, 2018 Acute UTI N39.0 [facility] IN [facility] [address] [place] [address] 19 Nov, 2018 [facility] IN [address] [address] 14 Nov, 2018 Flank pain R10.9 and Dysuria R30.0 [facility] [address] [place] [address] Jun, [facility] [id number] [place] [address] February, Atyp squam cell of undet signfc cyto smr crvx (ASC-US) R87.610 and Cervical high risk human papillomavirus (HPV) DNA test positive R87.810 [facility] [address] [place] [address] February, [facility] IN [facility] [address] [place] [address] 15 Jan, 2016 Vaginal discharge N89.8 and Encounter for screening for infections with a predominantly sexual mode of transmission Z11.3 [facility] [address] [place] [address] Aug, [facility] [id number] [place] [address] Aug, Contact dermatitis L25.9 and Poison bharathi L23.7 [facility] [id number] [place] [address] Jul, [facility] [id number] [place] [address] Jun, Encounter for IUD removal V25.12 and Contraception management V25.9 [facility] [id number] [place] [id number] Jun, Dental examination V72.2 [facility] [id number] [place] [address] Mar, [facility] [id number] [place] [address] Jan, [facility] [id number] [place] [address] Jan, [facility] [id number] [place] [address] Mar, [facility] [address] [place] [address] Mar, [facility] [id number] [place] [address] Nov, [facility] [address] [place] [address] Nov, [facility] [id number] [place] [address] Nov, [facility] [id number] [place] [address] Nov, [facility] [address] [id number] [address] Nov, [facility] [place] [facility] [address] [id number] [place] [address] Nov, [facility] [place] [facility] [address] [id number] [place] [address] Oct, [facility] [place] [facility] [address] [id number] [place] [address] Oct, [facility] [place] [facility] [address] [id number] [place] [address] Oct, [facility] [place] [facility] [address] [id number] [place] [address] Oct, [facility] [place] [facility] [address] [id number] [place] [address] May, [facility] [place] [facility] [address] [id number] [place] [address] May, [facility] [place] [facility] [address] [id number] [place] [address] May, [facility] [place] [facility] [address] [id number] [place] [address] Apr, [facility] [place] [facility] [address] [id number] [place] [address] Mar, [facility] [place] [facility] [address] [id number] [place] [address] Mar, [facility] [place] [facility] [address] [id number] [place] [address] Mar, [facility] [place] [facility] [address] [id number] [place] [address] Mar, [facility] [place] [facility] [address] [id number] [place] [address] February, [facility] [place] [facility] [address] [id number] [place] [address] February, [facility] [address] [facility] [id number] [address] February, [facility] [address] [address] Mar, [facility] [address] [id number] [address] Mar, [facility] [address] [address] Mar, [facility] [address] [id number] [address] Mar, [facility] [address] [id number] [address] Mar, IMMUNIZATIONS No Known Immunizations SOCIAL HISTORY Never Assessed REASON FOR VISIT [facility] [place]ARE VITAL SIGNS MEDICATIONS Unknown Medications RESULTS No Results PROCEDURES No Known procedures INSTRUCTIONS MEDICATIONS ADMINISTERED No Known Medications MEDICAL (GENERAL) HISTORY Type Description Date Medical History heart cath Medical History 3 vaginal births Surgical History heart cath Hospitalization History 3 vaginal births Hospitalization History heart cath
--- OUTSIDE RECORDS SUMMARY | 2019-03-15 11:14 | XMS REPORT ---
Author Author BENITO DE LEON [facility] eClinicalWorks Address Unknown Phone Unavailable Care Team Providers Care Residential Life Director Name Role Phone BENITO DE LEON CP Unavailable Allergies No Known Allergies Problems Problem Type Condition Code Onset Dates Condition Status Problem Nondependent tobacco use disorder 305.1 Active Problem Anorexia 783.0 Active Medications No Known Medications Results No Known Results Summary Purpose eClinicalWorks Submission
--- OUTSIDE RECORDS SUMMARY | 2019-03-15 11:14 | XMS REPORT ---
Author Author Migration, Doctor Organization [facility] Address Unknown Phone Unavailable Care Team Providers Care Machine Packaging Technician Name Role Phone Migration, Doctor Unavailable Unavailable PROBLEMS Type Condition ICD9-CM Code XVY30-LW Code Onset Dates Condition Status SNOMED Code Problem Contact dermatitis L25.9 Active 05751098 Problem Tobacco abuse Z72.0 Active 44314878 Problem Anorexia 783.0 Active 35814775 Problem Nondependent tobacco use disorder 305.1 Active [id number] ALLERGIES No Information ENCOUNTERS Encounter Location Date Diagnosis [facility] [address] [place] [address] Dec, Drug screening, pre-employment Z02.[address] [address] 20 Nov, 2018 Acute UTI N39.0 [facility] [address] [place] [address] 19 Nov, 2018 [facility] [address] [address] 14 Nov, 2018 Flank pain R10.9 and Dysuria R30.0 [facility] [address] [place] [address] Jun, [facility] [id number] [place] [address] February, Atyp squam cell of undet signfc cyto smr crvx (ASC-US) R87.610 and Cervical high risk human papillomavirus (HPV) DNA test positive R87.810 [facility] [address] [place] [address] February, [facility] [address] [place] [address] 15 Jan, 2016 Vaginal discharge N89.8 and Encounter for screening for infections with a predominantly sexual mode of transmission Z11.3 [facility] [address] [place] [address] Aug, [facility] [id number] [place] [address] Aug, Contact dermatitis L25.9 and Poison bharathi L23.7 [facility] [id number] [place] [address] Jul, [facility] [id number] [place] [address] Jun, Encounter for IUD removal V25.12 and Contraception management V25.9 [facility] [id number] [place] [id number] Jun, Dental examination V72.2 [facility] [id number] [place] [address] Mar, [facility] [id number] [place] [address] Jan, [facility] [id number] [place] [address] Jan, [facility] [id number] [place] [address] Mar, [facility] [address] [place] [address] Mar, [facility] [id number] [place] [address] Nov, [facility] [address] [place] [address] Nov, [facility] [id number] [place] [address] Nov, [facility] [id number] [place] [address] Nov, [facility] [id number] [place] [address] Nov, [facility] [place] [facility] [address] [id number] [place] [address] Nov, [facility] [place] [facility] [address] [id number] [place] [address] Oct, [facility] [place] [facility] [address] [id number] [place] [address] Oct, [facility] [place] [facility] [address] [id number] [place] [address] Oct, [facility] [place] [facility] [address] [id number] [place] [address] Oct, [facility] [place] [facility] [address] [id number] [place] [address] May, [facility] [place] [facility] [address] [id number] [place] [address] May, [facility] [place] [facility] [address] [id number] [place] [address] May, [facility] [place] [facility] [address] [id number] [place] [address] Apr, [facility] [place] [facility] [address] [id number] [place] [address] Mar, [facility] [place] [facility] [address] [id number] [place] [address] Mar, [facility] [place] [facility] [address] [id number] [place] [address] Mar, [facility] [place] [facility] [address] [id number] [place] [address] Mar, [facility] [place] [facility] [address] [id number] [place] [address] February, [facility] [place] [facility] [address] [id number] [place] [address] February, [facility] [address] [facility] [id number] [address] February, [facility] [address] [address] Mar, [facility] [address] [id number] [address] Mar, [facility] [address] [address] Mar, [facility] [id number] [address] Mar, [facility] [address] [id number] [address] Mar, IMMUNIZATIONS No Known Immunizations SOCIAL HISTORY Never Assessed REASON FOR VISIT EMR-[facility] PLAN OF CARE VITAL SIGNS MEDICATIONS Unknown Medications RESULTS No Results PROCEDURES No Known procedures INSTRUCTIONS MEDICATIONS ADMINISTERED No Known Medications MEDICAL (GENERAL) HISTORY Type Description Date Medical History heart cath Medical History 3 vaginal births Surgical History heart cath Hospitalization History 3 vaginal births Hospitalization History heart cath
--- OUTSIDE RECORDS SUMMARY | 2019-03-15 11:14 | XMS REPORT ---
Author Author BENITO DE LEON eClinicalWorks Address Unknown Phone Unavailable Care Team Providers Care Radio Announcer Name Role Phone BENITO DE LEON CP Unavailable Allergies, Adverse Reactions, Alerts Substance Reaction Event Type N.K.D.A. Info Not Available Non Drug Allergy Problems Problem Type Condition Code Onset Dates Condition Status Problem Contact dermatitis L25.9 Active Problem Anorexia 783.0 Active Problem Tobacco abuse Z72.0 Active Assessment Cervical high risk human papillomavirus (HPV) DNA test positive R87.810 Active Problem Nondependent tobacco use disorder 305.1 Active Assessment Atyp squam cell of undet signfc cyto smr crvx (ASC-US) R87.610 Active Medications Medication Code System Code Instructions Start Date End Date Status Dosage Chantix Continuing Month [place] [facility] [address]-96 1 MG Orally Twice a day 1 tablet Flagyl [facility] [address]-31 500 MG Orally 2 times a day February 29, 2016 1 tablet Procedures Procedure Coding System Code Date BX/CURETT OF CERVIX W/SCOPE CPT-4 91980 March 01, 2016 URINE TEST CPT-4 32600 March 01, 2016 Vital Signs Date/Time: March 01, 2016 Temperature 98.3 F Weight 133.5 lbs Height 61 in BMI 25.22 Index Blood Pressure Diastolic 72 mmHg Blood Pressure Systolic 123 mmHg Cardiac Monitoring Heart Rate 74 bpm Results Name Result Date Reference Range Unit Abnormality Flag TEST, URINE (IN HOUSE) ----RESULTS Negative [id number] ----Lot # [id number] ----Control + [id number] ----Exp date 20160301 COLP W/ BX & ECC Summary Purpose eClinicalWorks Submission
--- OUTSIDE RECORDS SUMMARY | 2019-03-15 11:14 | XMS REPORT ---
Author LINDSAY Ferraro [facility] eClinicalWorks Address Unknown Phone Unavailable Care Team Providers Care Transcribing Operator Head Name Role Phone LINDSAY CEBALLOS CP Unavailable Allergies No Known Allergies Problems Problem Type Condition Code Onset Dates Condition Status Problem Contact dermatitis L25.9 Active Problem Anorexia 783.0 Active Problem Tobacco abuse Z72.0 Active Problem Nondependent tobacco use disorder 305.1 Active Medications Medication Code System Code Instructions Start Date End Date Status Dosage Flagyl [facility] [address]-44 500 MG Orally 2 times a day February 29, 2016 1 tablet Results No Known Results Summary Purpose eClinicalWorks Submission
[2019-03-15] MEDS ORDERED: ONDANSETRON 4 MG/2 ML (SDV) Z0FRAN IVP ONE (11:15)
[2019-03-15] MEDS ORDERED: NS IV 1000 ML 1,000 ML IV SCH (11:15)
[2019-03-15] MEDS ORDERED: KETOROLAC 30 MG/ML VIAL IVP ONE (11:15)
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
--- OUTSIDE RECORDS SUMMARY | 2019-03-15 11:15 | XMS REPORT ---
Author Author LINDSAY CEBALLOS [facility] Address [address] [place] [address] Care Team Providers Care Scrap Wheeler Name Role Phone LINDSAY CEBALLOS Unavailable PROBLEMS Type Condition ICD9-CM Code RJS38-LN Code Onset Dates Condition Status SNOMED Code Problem Tobacco abuse Z72.0 Active 28134086 Problem Contact dermatitis L25.9 Active 92757854 Problem Nondependent tobacco use disorder 305.1 Active 378136495 Problem Anorexia 783.0 Active 17370003 ALLERGIES No Information ENCOUNTERS Encounter Location Date Diagnosis [facility] [address] [address] Jun, [facility] [address] [address] February, Atyp squam cell of undet signfc cyto smr crvx (ASC-US) R87.610 and Cervical high risk human papillomavirus (HPV) DNA test positive R87.810 [facility] [id number] [place] [address] February, [facility] [id number] [place] [address] Jan, Vaginal discharge N89.8 and Encounter for screening for infections with a predominantly sexual mode of transmission Z11.3 [facility] [address] [address] Aug, [address] [address] Aug, Contact dermatitis L25.9 and Poison bharathi L23.7 [place] [address] [address] Jul, [facility] [id number] [address] Jun, Encounter for IUD removal V25.12 and Contraception management V25.9 [facility] [address] [id number] [id number] Jun, Dental examination V72.2 [facility] [address] [address] Mar, [facility] [address] [address] Jan, [facility] [address] [place] [address] Jan, [facility] [address] [place] [address] Mar, [facility] [address] [place] [address] Mar, [facility] [address] [address] Nov, [facility] [address] [place] [address] Nov, [facility] [address] [address] Nov, [facility] [address] [address] Nov, [facility] [address] [address] Nov, [facility] [address] [address] Nov, [facility] [address] [address] Oct, [facility] [address] [address] Oct, [facility] [place] [facility] [address] [id number] [place] [address] Oct, [facility] [place] [facility] [address] [id number] [place] [address] Oct, [facility] [place] [facility] [address] [id number] [place] [address] May, [facility] [place] [facility] [address] [id number] [place] [address] May, [facility] [place] [facility] [address] [id number] [place] [address] May, [facility] [place] [facility] [address] [id number] [place] [address] Apr, [facility] [place] [facility] [address] [id number] [place] [address] Mar, [facility] [place] [facility] [address] [id number] [place] [address] Mar, [facility] [place] [facility] [address] [id number] [place] [address] Mar, [facility] [place] [facility] [address] [id number] [place] [address] Mar, [facility] [place] [facility] [address] [id number] [place] [address] February, [facility] [place] [facility] [address] [id number] [place] [address] February, [facility] [place] [facility] [address] [id number] [place] [address] February, [facility] [place] [facility] [address] [id number] [place] [address] Mar, [facility] [place] [facility] [address] [id number] [place] [address] Mar, [facility] [place] [facility] [address] [facility] [id number] [place] [address] Mar, [facility] [address] [facility] [id number] [place] [address] Mar, [facility] [address] [facility] [id number] [place] [address] Mar, IMMUNIZATIONS No Known Immunizations SOCIAL HISTORY Never Assessed REASON FOR VISIT 1st Repeat Pap Letter Mailed PLAN OF CARE VITAL SIGNS MEDICATIONS Unknown Medications RESULTS No Results PROCEDURES No Known procedures INSTRUCTIONS MEDICATIONS ADMINISTERED No Known Medications
--- OUTSIDE RECORDS SUMMARY | 2019-03-15 11:15 | XMS REPORT ---
Author Author FAMILIA POWELL [facility] eClinicalWorks Address Unknown Phone Unavailable Care Team Providers Care Real Estate Sales Manager Name Role Phone FAMILIA POWELL CP Unavailable [...] End Date Status Dosage Chantix Continuing Month [facility] [address]-11 1 MG Orally Twice a day 1 tablet Procedures Procedure Coding System Code Date No Charge CPT-4 97824 February 12, 2016 TRICHOMONAS ASSAY W/OPTIC CPT-4 06408 February 12, 2016 URINALYSIS, AUTO, W/O SCOPE CPT-4 76192 February 12, 2016 Office Visit, Est Pt., Level 3 CPT-4 35713 February 12, 2016 CULTURE, BACTERIA, OTHER CPT-4 88118 February 12, 2016 LOPEZ VAG, DNA, DIR PROBE CPT-4 73427 February 12, 2016 SPECIMEN HANDLING CPT-4 55774 February 12, 2016 VENIPUNCT, ROUTINE* CPT-4 09726 February 12, 2016 Vital Signs Date/Time: February 12, 2016 Temperature 97.7 F Weight 130.0 lbs Height 61 in BMI 24.56 Index Blood Pressure Diastolic 74 mmHg Blood Pressure Systolic 126 mmHg Cardiac Monitoring Heart Rate 90 bpm Results Name Result Date Reference Range Unit Abnormality Flag BACTERIAL VAGINOSIS (IN HOUSE) ----Lot # [id number] ----Exp date [id number] ----RESULTS negative [id number] ----Control + [id number] ROUTINE VENIPUNCTURE TRICHOMONAS (IN HOUSE) ----TRICHOMONAS negative 20160212 ----Control + 20160212 ----Lot # [id number] ----Exp date 20160212 UA LONG DIP (IN HOUSE) ----JULEE negative 20160212 ----GLU negative 20160212 ----SG 1.025 20160212 ----KET negative 20160212 ----pH 6.5 20160212 ----Protein negative 20160212 ----BLO negative 20160212 ----DANIE negative 20160212 ----Color dark yellow 20160212 ----Lot # [id number] ----Odor strong 20160212 ----Exp date 20160212 ----URO 0.2 20160212 ----NIT negative 20160212 ----Clarity clear 20160212 ----Lot # [id number] ----Exp date 20160212 CULTURE, GENITAL ----Genital Culture, Routine Preliminary report 20160212 Summary Purpose eClinicalWorks Submission
--- OUTSIDE RECORDS SUMMARY | 2019-03-15 11:15 | XMS REPORT ---
Author Author BENITO DE LEON [facility] e[employer] Address Unknown Phone Unavailable Care Team Providers Care Building Maintenance Supervisor Name Role Phone BENITO DE LEON CP Unavailable Allergies, Adverse Reactions, Alerts Substance Reaction Event Type N.K.D.A. Info Not Available Non Drug Allergy Problems Problem Type Condition ICD-9 Code Onset Dates Condition Status Problem Nondependent tobacco use disorder 305.1 Active Assessment Encounter for IUD removal V25.12 Active Problem Anorexia 783.0 Active Assessment Contraception management V25.9 Active Medications Medication Code System Code Instructions Start Date End Date Status Dosage Ortho-Cyclen (28) [facility] [address]-58 0.25-35 MG-MCG Orally Once a day Jul 02, 2015 1 tablet Mirena [facility] [id number] March 31, 2012 by Intrauterine route Procedures Procedure Coding System Code Date URINE TEST CPT-4 87716 Jul 02, 2015 REMOVE INTRAUTERINE DEVICE CPT-4 65550 Jul 02, 2015 Vital Signs Date/Time: Jul 02, 2015 Temperature 98.0 F Weight 115.6 lbs Height 61 in BMI 21.84 Index Blood Pressure Diastolic 70 mmHg Blood Pressure Systolic 110 mmHg Cardiac Monitoring Heart Rate 78 bpm Results Name Result Date Reference Range Unit Abnormality Flag TEST, URINE (IN HOUSE) Summary Purpose eClinicalWorks Submission
--- OUTSIDE RECORDS SUMMARY | 2019-03-15 11:15 | XMS REPORT ---
Author Author SILVANA HAN Organization e[employer] Address Unknown Phone Unavailable Care Team Providers Care Chassis Driver Name Role Phone SILVANA HAN CP Unavailable Allergies No Known Allergies Problems Problem Type Condition Code Onset Dates Condition Status Problem Contact dermatitis L25.9 Active Problem Anorexia 783.0 Active Problem Tobacco abuse Z72.0 Active Problem Nondependent tobacco use disorder 305.1 Active Medications Medication Code System Code Instructions Start Date End Date Status Dosage PredniSONE [facility] [address]-90 10 MG Orally Once a day Sep 08, 2015 Sep 21, 2015 not defined Results No Known Results Summary Purpose eClinicalWorks Submission
[2019-03-15] MEDS ORDERED: NS 100 ML (IVPB) BAG IV ONE (11:30)
[2019-03-15] MEDS ORDERED: HOLD METFORMIN - RECEIVED CONTRAST 20 ML VIAL IV SCH (11:30)
[2019-03-15] MEDS ORDERED: CATHETER FLUSH 10 ML SYR IV PRN (11:30)
[2019-03-15] MEDS ORDERED: IOHEXOL 350 MG/ML 100 ML (OMNIPAQUE 350) VIAL IV ONE (11:30)
[2019-03-15 11:43] LABS: BASOPHILS % (AUTO) 0 % (0-10); EOSINOPHILS % (AUTO) 1 % (0-10); HEMATOCRIT 45 % (35-52); HEMOGLOBIN 15.4 G/DL (11.5-16.0); LYMPHOCYTES % (AUTO) 20 % (12-44); MEAN CORPUSCULAR HEMOGLOBIN 33 PG (25-34); MEAN CORPUSCULAR HGB CONC 34 G/DL (32-36); MEAN CORPUSCULAR VOLUME 96 FL (80-99); MEAN PLATELET VOLUME 9.9 FL (7.4-10.4); MONOCYTES % (AUTO) 7 % (0-12); NEUTROPHILS % (AUTO) 72 % (42-75); PLATELET COUNT 287 10^3/uL (130-400); RED CELL DISTRIBUTION WIDTH 12.6 % (10.0-14.5); WHITE BLOOD COUNT 6.3 10^3/uL (4.3-11.0)
[2019-03-15 11:44] LABS: ALKALINE PHOSPHATASE 57 U/L (40-136); BILIRUBIN,TOTAL 0.8 MG/DL (0.1-1.0); BUN/CREATININE RATIO 11; CARBON DIOXIDE 24 MMOL/L (21-32); CHLORIDE 98 MMOL/L (98-107); CREATININE SERUM 0.66 MG/DL (0.60-1.30); EOSINOPHILS # (AUTO) 0.1 10^3/uL (0.0-0.3); GFR ESTIMATED > 60; GLUCOSE 103 MG/DL (70-105); LYMPHOCYTES # (AUTO) 1.2 X 10^3 (1.0-4.0); MONOCYTES # (AUTO) 0.5 X 10^3 (0.0-1.0); NEUTROPHILS # (AUTO) 4.5 X 10^3 (1.8-7.8); SODIUM 138 MMOL/L (135-145)
[2019-03-15 11:45] LABS: ALANINE AMINOTRANSFERASE 27 U/L (0-55); ALBUMIN 4.3 GM/DL (3.2-4.5); LIPASE 40 U/L (8-78); TOTAL PROTEIN 7.4 GM/DL (6.4-8.2)
--- NOTE | 2019-03-15 12:17 | Diagnostic Imaging Report ---
PROCEDURE: CT abdomen and pelvis with contrast. TECHNIQUE: Multiple contiguous axial images were obtained through the abdomen and pelvis after administration of intravenous contrast. Auto Exposure Controls were utilized during the CT exam to meet ALARA standards for radiation dose reduction. INDICATION: Nausea and vomiting. Abdominal pain. Abdominal distention. FINDINGS: Included portions of the lung bases show 3 mm subpleural micronodule within the left lower lobe (image 6, series 2). CT ABDOMEN: Normal appendix is identified. Small bowel loops are nondistended. There is subtle area of relative hypoenhancement involving the posterior margins of segment 7 of the liver. Area in question measures 7-8 mm in diameter (image 22, series 2). Otherwise, the liver, kidneys, adrenal glands, spleen, and pancreas have a normal CT appearance. There is no loculated fluid collection, free fluid, nor free air within the abdomen. No abnormal mesenteric or retroperitoneal adenopathy is seen. Bony structures show no acute abnormalities. CT PELVIS: Urinary bladder is unopacified. No calculi are seen within the urinary bladder. There is trace free fluid within the pelvis. There is no loculated fluid collection or free air. Indwelling intrauterine contraceptive device is identified and appears to be in appropriate position. No abnormal adenopathy is seen within the pelvis. Bony structures show no acute abnormalities. IMPRESSION: 1. Trace free fluid within the pelvis; likely physiologic. 2. Subtle area of relative nodular hypoenhancement involving segment 7 of the liver. This is incompletely characterized on this exam. If further evaluation is indicated, followup with Eovist MRI is recommended. 3. Small micronodule within the included portions of the left lower lobe. If patient is in a high-risk category, such as history of smoking, may want to consider one-year followup to ensure stability. Otherwise, if patient is in a low-risk category, no further followup may be indicated. Dictated by: Dictated on workstation # [id number]
--- NOTE | 2019-03-15 12:44 | ED Abdominal Pain ---
General Chief Complaint: Abdominal/GI Problems Stated Complaint: ABD PAIN & BLOATING; N&V Nursing Triage Note: Patient reports midline abdominal pain that started last night with nausea and vomiting. She states she vomited twice during the night and her pain has worsened and moved to her right lower quadrant. Sepsis Screen: No Definite Risk Source of Information: Patient History of Present Illness Date Seen by Provider: March 15, 2019 Time Seen by Provider: 10:50 Initial Comments 28 yo F presenting with abdominal pain since yesterday. She has not felt well this week. She had some n/v since last night associated with middle abdominal pain. Then the pain seemed to move more to her RLQ area. She has no change in bowels. She has no fever but has chills. She has pain with palpation. She has decreased appetite. She admits to drinking alcohol almost daily. Denies any fever but has felt chilled Allergies and Home Medications Allergies Coded Allergies: No Known Drug Allergies (Unverified , 11/06/16) Home Medications Amlodipine Besylate 2.5 Mg Tablet, 2.5 MG PO DAILY Prescribed by: MAXWELL ARREDONDO on 11/07/16 1114 Aspirin 81 Mg Tablet.dr, 81 MG PO DAILY Prescribed by: MAXWELL ARREDONDO on 11/07/16 1114 Dicyclomine HCl 20 Mg Tablet, 20 MG PO ACHS PRN for ABDOMINAL PAIN Prescribed by: KRISTEN BOSS on 03/15/19 1317 Famotidine 20 Mg Tablet, 20 MG PO BID PRN for INDIGESTION Prescribed by: MAXWELL ARREDONDO on 11/07/16 1114 Naproxen Sodium 220 Mg Tablet, 220-440 MG PO DAILY PRN for PAIN, (Reported) TAKES 1-2 (220 MG) TABLET Ondansetron 4 Mg Tab.rapdis, 4 MG PO Q6H PRN for NAUSEA/VOMITING Prescribed by: KRISTEN BOSS on 03/15/19 1317 Sulfamethoxazole/Trimethoprim 1 Each Tablet, 1 TAB PO BID, (Reported) FILLED 11/04/15 #14 FOR A 7 DAY THERAPY Patient Home Medication List Home Medication List Reviewed: Yes Review of Systems Review of Systems Constitutional: chills; No fever; malaise EENTM: No Symptoms Reported Respiratory: No Symptoms Reported Cardiovascular: No Symptoms Reported Gastrointestinal: See HPI, Abdominal Pain; Denies Blood Streaked Stools, Denies Constipated, Denies Diarrhea, Denies Difficulty Swallowing; Nausea, Poor Appet ite; Denies Poor Fluid Intake, Denies Rectal Bleeding; Vomiting Genitourinary: No Symptoms Reported; Denies Burning, Denies Discharge, Denies Drainage, Denies Frequency, Denies Flank Pain, Denies Hematuria Musculoskeletal: no symptoms reported Skin: no symptoms reported Psychiatric/Neurological: No Symptoms Reported Endocrine: No Symptoms Reported Past Gvamonp-Lbatmx-Zirbct Hx Past Med/Social Hx: Reviewed Nursing Past Med/Soc Hx Patient Social History Alcohol Use: Regular Use Number of Drinks Today: 0 Alcohol Beverage of Choice: Whiskey Recreational Drug Use: No Smoking Status: Current Everyday Smoker Type Used: Cigarettes 2nd Hand Smoke Exposure: No Recent Foreign Travel: No Contact w/Someone Who Travel: No Recent Infectious Disease Expo: No Recent Hopitalizations: No Physical Abuse: No Sexual Abuse: No Mistreated: No Fear: No Seasonal Allergies Seasonal Allergies: No Past Medical History Surgeries: No Respiratory: No Cardiac: No Neurological: No : No 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 Physical Exam Vital Signs Vital Signs - First Documented 03/15/19 10:45 Temp 98.6 Pulse 57 Resp 16 B/P (MAP) 135/91 (106) Pulse Ox 100 O2 Delivery Room Air Capillary Refill : Less Than 3 Seconds Height/Weight/BMI Height: 5'1.00" Weight: 155lbs. 2.0oz. 70.520601kp; 23.5 BMI Method:Stated General Appearance: WD/WN, no apparent distress HEENT: PERRL/EOMI, normal ENT inspection, pharynx normal Neck: non-tender, supple Respiratory: chest non-tender, lungs clear, normal breath sounds, no respiratory distress, no accessory muscle use Cardiovascular: normal peripheral pulses, regular rate, rhythm Gastrointestinal: normal bowel sounds, soft, no pulsatile mass; No guarding, No rebound; tenderness (rlq area is more tender but has diffuse mild tenderness) Rectal: deferred Extremities: normal range of motion, non-tender, normal inspection, no pedal edema, no calf tenderness Neurologic/Psychiatric: alert, normal mood/affect, oriented x 3 Skin: normal color, warm/dry Progress/Results/Core Measures Results/Orders Lab Results Laboratory Tests Test 03/15/19 10:40 03/15/19 11:00 Range/Units Urine Color DARK YELLOW Urine Clarity CLEAR Urine pH 7.0 5-9 Urine Specific [place]vell 1.020 1.016-1.022 Urine Protein TRACE H NEGATIVE Urine Glucose (UA) NEGATIVE NEGATIVE Urine Ketones 3+ H NEGATIVE Urine Nitrite NEGATIVE NEGATIVE Urine Bilirubin 2+ H NEGATIVE Urine Urobilinogen 0.2 NORMAL MG/DL Urine Leukocyte Esterase TRACE H NEGATIVE Urine RBC (Auto) TRACE-L NEGATIVE Urine RBC RARE /HPF Urine WBC 0-2 /HPF Urine Squamous Epithelial Cells 5-10 /HPF Urine Crystals NONE /LPF Urine Bacteria TRACE /HPF Urine Casts NONE /LPF Urine Mucus LARGE H /LPF Urine Culture Indicated NO Urine Test NEGATIVE NEGATIVE White Blood Count 6.3 4.3-11.0 10^3/uL Red Blood Count 4.69 4.35-5.85 10^6/uL Hemoglobin 15.4 11.5-16.0 G/DL Hematocrit 45 35-52 % Mean Corpuscular Volume 96 80-99 FL Mean Corpuscular Hemoglobin 33 25-34 PG Mean Corpuscular Hemoglobin Concent 34 32-36 G/DL Red Cell Distribution Width 12.6 10.0-14.5 % Platelet Count 287 130-400 10^3/uL Mean Platelet Volume 9.9 7.4-10.4 FL Neutrophils (%) (Auto) 72 42-75 % Lymphocytes (%) (Auto) 20 12-44 % Monocytes (%) (Auto) 7 0-12 % Eosinophils (%) (Auto) 1 0-10 % Basophils (%) (Auto) 0 0-10 % Neutrophils # (Auto) 4.5 1.8-7.8 X 10^3 Lymphocytes # (Auto) 1.2 1.0-4.0 X 10^3 Monocytes # (Auto) 0.5 0.0-1.0 X 10^3 Eosinophils # (Auto) 0.1 0.0-0.3 10^3/uL Basophils # (Auto) 0.0 0.0-0.1 10^3/uL Sodium Level 138 135-145 MMOL/L Potassium Level 4.0 3.6-5.0 MMOL/L Chloride Level 98 98-107 MMOL/L Carbon Dioxide Level 24 21-32 MMOL/L Anion Gap 16 H 5-14 MMOL/L Blood Urea Nitrogen 7 7-18 MG/DL Creatinine 0.66 0.60-1.30 MG/DL Estimat Glomerular Filtration Rate > 60 BUN/Creatinine Ratio 11 Glucose Level 103 70-105 MG/DL Calcium Level 9.0 8.5-10.1 MG/DL Corrected Calcium 8.5-10.1 MG/DL Total Bilirubin 0.8 0.1-1.0 MG/DL Aspartate Amino Transf (AST/SGOT) 23 5-34 U/L Alanine Aminotransferase (ALT/SGPT) 27 0-55 U/L Alkaline Phosphatase 57 40-136 U/L Total Protein 7.4 6.4-8.2 GM/DL Albumin 4.3 3.2-4.5 GM/DL Lipase 40 8-78 U/L My Orders Orders - KRISTEN BOSS MD Ua Culture If Indicated (03/15/19 10:39) Hcg,Qualitative Urine (03/15/19 10:39) Comprehensive Metabolic Panel (03/15/19 11:15) Lipase (03/15/19 11:15) Ed Iv/Invasive Line Start (03/15/19 11:15) Cbc With Automated Diff (03/15/19 11:15) Ct Abdomen/Pelvis W (03/15/19 11:15) Ns Iv 1000 Ml (Sodium Chloride 0.9%) (03/15/19 11:15) Ketorolac Injection (Toradol Injection) (03/15/19 11:15) Ondansetron Injection (Zofran Injectio (03/15/19 11:15) Iohexol Injection (Omnipaque 350 Mg/Ml 1 (03/15/19 11:30) Received Contrast (Hold Metformin- Contr (03/15/19 11:30) Ns (Ivpb) (Sodium Chloride 0.9% Ivpb Bag (03/15/19 11:30) Sodium Chloride Flush (Catheter Flush Sy (03/15/19 11:30) Medications Given in ED Vital Signs/I&O 03/15/19 10:45 Temp 98.6 Pulse 57 Resp 16 B/P (MAP) 135/91 (106) Pulse Ox 100 O2 Delivery Room Air 03/16/19 00:00 Intake Total 1000 ml Balance 1000 ml Blood Pressure Mean: 106 Progress Progress Note #1: Progress Note With her having pain in middle of abdomen and moving to RLQ will check CT scan abd/pelvis to eval for appendicitis or colon pathology. check labs and give ivf with toradol for pain and zofran for nausea. Progress Note #2: Progress Note Labs are stable with no significant abnormality on her CBC. Chemistry with mild elevation of lfts. Urine clear of infection or acute abnormality. CT scan shows no appendicitis or colon pathology. she has hyoenhancing nodule in the liver that MRI or ultrasound may help eval. further. counseled to quit drinking alcohol so much. may need EGD or colonoscopy. Check with the clinic for follow up. Diagnostic Imaging Diagonstic Imaging: CT Plain Films/CT/US/NM/MRI: abdomen, pelvis Comments NAME: ROZINA HERNANDEZ [facility] REC#: [id number] PT STATUS: DEP ER : 1990 PHYSICIAN: KRISTEN BOSS MD ADMIT DATE: 03/15/19/ER FS Signed Date of Exam:03/15/19 CT ABDOMEN/PELVIS W PROCEDURE: CT abdomen and pelvis with contrast. TECHNIQUE: Multiple contiguous axial images were obtained through the abdomen and pelvis after administration of intravenous contrast. Auto Exposure Controls were utilized during the CT exam to meet ALARA standards for radiation dose reduction. INDICATION: Nausea and vomiting. Abdominal pain. Abdominal distention. FINDINGS: Included portions of the lung bases show 3 mm subpleural micronodule within the left lower lobe (image 6, series 2). CT ABDOMEN: Normal appendix is identified. Small bowel loops are nondistended. There is subtle area of relative hypoenhancement involving the posterior margins of segment 7 of the liver. Area in question measures 7-8 mm in diameter (image 22, series 2). Otherwise, the liver, kidneys, adrenal glands, spleen, and pancreas have a normal CT appearance. There is no loculated fluid collection, free fluid, nor free air within the abdomen. No abnormal mesenteric or retroperitoneal adenopathy is seen. Bony structures show no acute abnormalities. CT PELVIS: Urinary bladder is unopacified. No calculi are seen within the urinary bladder. There is trace free fluid within the pelvis. There is no loculated fluid collection or free air. Indwelling intrauterine contraceptive device is identified and appears to be in appropriate position. No abnormal adenopathy is seen within the pelvis. Bony structures show no acute abnormalities. IMPRESSION: 1. Trace free fluid within the pelvis; likely physiologic. 2. Subtle area of relative nodular hypoenhancement involving segment 7 of the liver. This is incompletely characterized on this exam. If further evaluation is indicated, followup with Eovist MRI is recommended. 3. Small micronodule within the included portions of the left lower lobe. If patient is in a high-risk category, such as history of smoking, may want to consider one-year followup to ensure stability. Otherwise, if patient is in a low-risk category, no further followup may be indicated. Dictated by: Dictated on workstation # [id number] Dict: 03/15/19 1203 Trans: 03/15/19 1634 [id number] Interpreted by: DAMIAN GILLIS MD Electronically signed by: DAMIAN GILLIS MD 03/15/19 1634 Departure Impression Primary Impression: Diffuse abdominal pain Additional Impressions: Alcoholic gastritis without bleeding Qualified Codes: K29.20 - Alcoholic gastritis without bleeding Hypodense mass of liver Disposition: HOME, SELF-CARE Condition: Stable Departure-Patient Inst. Decision time for Depature: 13:14 Referrals: NO,LOCAL PHYSICIAN (PCP/Family) Primary Care Physician Patient Instructions: Effects of Alcohol on Your Health, Gastritis (DC), Ulcer and Gastritis Diet Add. Discharge Instructions: Follow up with clinic to have further testing done such as an EGD or scope to look at lining of your stomach for ulcers or irritation. You may also need an MRI or ultrasound to look at your liver. Try to stop drinking alcohol Use the medicine to help with abdominal pain and cramping and nausea. All discharge instructions reviewed with patient and/or family. Voiced understanding. Scripts Ondansetron (Ondansetron Odt) 4 Mg Tab.rapdis 4 MG PO Q6H PRN for NAUSEA/VOMITING for 5 Days, #20 TAB 0 Refills Prov: KRISTEN BOSS MD 03/15/19 Dicyclomine HCl (Dicyclomine HCl) 20 Mg Tablet 20 MG PO ACHS PRN for ABDOMINAL PAIN for 30 Days, #120 TAB 0 Refills Prov: KRISTEN BOSS MD 03/15/19 KRISTEN BOSS MD March 15, 2019 12:44
--- NOTE | 2019-03-15 13:00 | NUR ---
Patient not found in her room or in the ED or the immediate vicinity. Patient's IV catheter found in the trash.
[2019-03-15] MEDS ORDERED: ONDA4TAB11 PO (13:17)
[2019-03-15] MEDS ORDERED: DICY20TA10 PO (13:17)
== END 2019-03-15 13:00 | disposition home or self-care (01) ==
LOC: EDUNIT# 10:33 → ER FS 10:35
DX: K29.20 Alcoholic gastritis without bleeding (principal); K76.89 Other specified diseases of liver; F17.210 Nicotine dependence, cigarettes, uncomplicated; Z79.82 Long term (current) use of aspirin; Z97.5 Presence of (intrauterine) contraceptive device
CPT/HCPCS: 36415; 74177; 80053; 81000; 83690; 84703; 85025